=== PATIENT | male | born 1975 | race Hispanic/Latino ===

== ENCOUNTER 2019-05-13 00:40 | Inpatient (IN) | payer OTHER ==
[2019-05-13] VITALS (36 sets, daily range): BP systolic 115–163; BP diastolic 72–109
[~2019-05-13] VITALS: Ht 157.5 cm; Wt 89.8 kg
[2019-05-13] MEDS ORDERED: NITROGLYCERIN 5 MG/ML 10 ML VIAL IV ONE (01:06)
[2019-05-13] MEDS ORDERED: BIVALIRUDIN 250 MG/VIAL IV ONE (01:06)
[2019-05-13] MEDS ORDERED: LIDOCAINE HCL 2% 20ML ONE (01:07)
[2019-05-13] MEDS ORDERED: IOHEXOL-350 50ML VIAL IV ONE (01:07)
[2019-05-13] MEDS ORDERED: IOHEXOL 350 MG/ML 100ML INFUS..BTL IV ONE (01:07)
[2019-05-13] MEDS ORDERED: HEPARIN SODIUM 1000UNIT/ML 10ML VIAL ONE (01:15)
[2019-05-13] MEDS ORDERED: CLOPIDOGREL BISULFATE 300 MG TAB ONE (01:16)
[2019-05-13] MEDS ORDERED: ONDANSETRON HCL 4 MG/2 ML VIAL ONE (01:39)
[2019-05-13] MEDS ORDERED: DOPAMINE HCL 400 MG/D5%-WATER 250 ML IV ONE (01:47)
[2019-05-13] MEDS ORDERED: SODIUM CHLORIDE 0.9% 1000ML 1,000 ML IV SCH (02:48)
--- NOTE | 2019-05-13 02:49 | NUR ---
REPORT REPORT RECEIVED FROM ROSA MARIA BYNUM
[2019-05-13] MEDS ORDERED: ONDANSETRON HCL 4 MG/2 ML VIAL IVP PRN (03:00)
[2019-05-13] MEDS ORDERED: ACETAMINOPHEN 325 MG TAB PO PRN (03:00)
[2019-05-13] MEDS ORDERED: METOPROLOL TARTRATE 25 MG TAB PO SCH ×4 (03:00→09:00)
[2019-05-13] MEDS ORDERED: METOPROLOL TARTRATE 25 MG TAB ONE (03:28)
--- NOTE | 2019-05-13 04:15 | NUR ---
ADMISSION [id number] PATIENT ARRIVED TO ROOM 218 VIA BED. RIGHT GROIN SOFT, NO HEMATOMA NOTED. REINFORCED ACTIVITY RESTRICTIONS FOR 8 HOURS. PATIENT HYPERTENSIVE. INITIAL LOPRESSOR DOSE GIVEN
[2019-05-13 06:21] LABS: HEMATOCRIT 45.9 % (42-54); MEAN CORPUSCULAR HGB CONC 33.8 g/dL (32.0-36.0); MEAN CORPUSCULAR VOLUME 91.7 fL (79-99); PLATELET COUNT (AUTO) 294 K/uL (130-400); RED BLOOD CELL COUNT(AUTO) 5.01 MIL/uL (4.50-6.20); RED CELL DISTRIBUTION WIDTH 13.7 % (11.0-15.5); WHITE BLOOD COUNT (AUTO) 17.6 K/uL (4.8-10.8)
[2019-05-13 06:30] LABS: HEMOGLOBIN A1C 5.6 % (4.0-6.0)
[2019-05-13 06:54] LABS: ALBUMIN 3.2 g/dL (3.5-5.0); BILIRUBIN,TOTAL 0.9 mg/dL (0.2-1.0); CREATININE 1.4 mg/dL (0.5-1.5); POTASSIUM 4.3 mmol/L (3.5-5.1); TOTAL PROTEIN, SERUM 6.8 g/dL (6.0-8.3)
[2019-05-13] MEDS: CLOPIDOGREL BISULFATE 75 MG TAB PO SCH (07:25)
[2019-05-13] MEDS ORDERED: LISINOPRIL 10 MG TABLET ONE (07:27)
[2019-05-13] MEDS ORDERED: PANTOPRAZOLE SODIUM 40 MG TABLET.DR PO ONE (07:28)
[2019-05-13 07:37] LABS: TROPONIN I 143.28 ng/mL (0.00-0.06)
[2019-05-13] MEDS ORDERED: MAG HYDROX/AL HYDROX/SIMETH ES 30 ML SUSP UDCUP PO PRN (08:00)
[2019-05-13] MEDS: PANTOPRAZOLE SODIUM 40 MG TABLET.DR PO SCH (08:06)
[2019-05-13] MEDS: LISINOPRIL 10 MG TABLET PO SCH ×2 (08:06→21:37)
--- NOTE | 2019-05-13 08:08 | NUR ---
DR. Rafal LLOYD IN ROOM ASSESSING PT. AND SPEAKING WITH PT. RE:DRUG USE; PT. VERBALIZED UNDERSTANDING. Addendum: 05/14/19 at 1245 by JASPER WINTERS RN RN ADDENDUM:DR. Rafal LLOYD MADE AWARE, BY THIS NURSE, PT. WITH EPISODES OF ASYMPTOMATIC VENTRICULAR TACHYCARDIA; VERBALIZED UNDERSTANDING AND ORDERS RECEIVED.
[2019-05-13] MEDS ORDERED: LISINOPRIL 5 MG TABLET PO SCH (09:00)
[2019-05-13] MEDS: METOPROLOL TARTRATE 25 MG TAB PO SCH ×2 (09:22→21:37)
[2019-05-13] MEDS: ASPIRIN 325 MG TABLET PO SCH (09:22)
[2019-05-13] MEDS ORDERED: CHLORDIAZEPOXIDE HCL 25 MG CAP PO PRN ×2 (09:30)
[2019-05-13] MEDS ORDERED: POTASSIUM CHLORIDE 20MEQ/100ML 100 ML IV PRN ×2 (09:30)
[2019-05-13] MEDS ORDERED: POTASSIUM CHLORIDE 10% ELIXIR 20 MEQ/15 ML UDCUP PO PRN (09:30)
[2019-05-13] MEDS ORDERED: PHARMACY COMMUNICATION MISC PRN (09:30)
[2019-05-13] MEDS ORDERED: LIDOCAINE HCL-MPF 1% 2ML VIAL IVP PRN ×2 (09:30)
[2019-05-13] MEDS ORDERED: LORAZEPAM 2 MG/ML 1 ML VIAL IVP PRN ×2 (09:30)
[2019-05-13] MEDS ORDERED: POTASSIUM CHLORIDE 20 MEQ ERTAB PO PRN (09:30)
--- NOTE | 2019-05-13 09:35 | NUR ---
DR. Vicky BLACKMON IN ROOM ASSESSING/SPEAKING WITH PT.
--- NOTE | 2019-05-13 10:27 | NUR ---
[facility] Sw met with pt who states he is on SSD for bipolar disorder, lives with his parents Gregg Koch. Sister is ER contact Leah Pisano [phone]. Pt has no PCP, no rx coverage, takes no daily meds, under no psych care. Pt has no DME or in home care services. [facility] to [facility] Addendum: 05/13/19 at 1032 by MATTHEW MUNGUIA Amended: Links added.
--- NOTE | 2019-05-13 11:52 | NUR ---
PAGED CARDIOLOGY TO INFORM OF PT. WITH EXTENDED EPISODE OF ASYMPTOMATIC VENTRICULAR TACHYCARDIA. AWAITING RESPONSE.
--- NOTE | 2019-05-13 11:58 | NUR ---
RECEIVED CALL FROM Kalee DICKERSON PA-C, INFORMED OF EVENTS. ORDERS RECEIVED.
[2019-05-13] MEDS ORDERED: AMIODARONE HCL 900 MG in DEXTROSE 5%-WATER 500 ML IV PRN (12:00)
[2019-05-13] MEDS ORDERED: AMIODARONE HCL 150 MG in DEXTROSE 5%-WATER 100 ML IV PRN (12:00)
[2019-05-13 12:59] LABS: MAGNESIUM 1.8 mg/dL (1.80-2.40)
[2019-05-13 13:31] LABS: TROPONIN I 161.93 ng/mL (0.00-0.06)
[2019-05-13] MEDS ORDERED: MAGNESIUM 2GM PREMIX 50ML 50 ML IV PRN (14:00)
--- NOTE | 2019-05-13 14:37 | NUR ---
REQUESTED TO AMBULATE IN HALLWAY. APPLIED TELEMETRY PACK FOR MONITORING. THIS NURSE ACCOMPANIED PT. TO AMBULATE. ABLE TO AMBULATE APPROXIMATELY NINETY EIGHT FEET AND HAD TO STOP AND REST DUE TO FEELING "TIRED" AND EXERTIONAL SOB NOTE. PT. ABLE TO AMBULATE ADDITIONAL ONE HUNDRED AND SIXTEEN FEET WITH ADDITIONAL REST STOP. AMBULATED BACK TO ROOM LAST NINETY EIGHT FEET. PT. REQUESTED TO REMAIN SITTING UP ON SIDE OF BED; FAMILY MEMBERS AT BEDSIDE. CALL LIGHT WITHIN REACH. NO ARRHYTHMIAS NOTED DURING AMBULATION.
--- NOTE | 2019-05-13 20:00 | NUR ---
ASSESSMENT DENIES PAIN. REMAINS ON CORDARONE DRIP FOR V TACH ON DAY SHIFT. ASSESSMENT COMPLETED SEE FLOW SHEET. Addendum: 05/13/19 at 2115 by VILLA FALCON RN RN Amended: Links added.
[2019-05-13] MEDS: ATORVASTATIN CALCIUM 40 MG TABLET PO SCH (21:36)
[2019-05-14] VITALS (22 sets, daily range): BP systolic 122–174; BP diastolic 62–114
[2019-05-14 03:50] LABS: HEMATOCRIT 44.9 % (42-54); MEAN CORPUSCULAR HGB CONC 34.1 g/dL (32.0-36.0); MEAN CORPUSCULAR VOLUME 90.8 fL (79-99); NUCLEATED RED BLOOD CELLS 0.1 % (0.0-0.19); PLATELET COUNT (AUTO) 262 K/uL (130-400); RED BLOOD CELL COUNT(AUTO) 4.95 MIL/uL (4.50-6.20); RED CELL DISTRIBUTION WIDTH 13.9 % (11.0-15.5); WHITE BLOOD COUNT (AUTO) 19.1 K/uL (4.8-10.8)
[2019-05-14 04:07] LABS: B-TYPE NATRIURETIC PEPTIDE 195 pg/mL (0-100)
[2019-05-14 04:22] LABS: CREATININE 1.2 mg/dL (0.5-1.5); MAGNESIUM 2.4 mg/dL (1.80-2.40); POTASSIUM 4.3 mmol/L (3.5-5.1); THYROID STIMULATING HORMONE 0.87 uIU/mL (0.36-3.74)
[2019-05-14 04:25] LABS: TROPONIN I 136.43 ng/mL (0.00-0.06)
[2019-05-14 08:11] LABS: HEPATITIS A ANTIBODY IGM Negative (Negative); HEPATITIS B CORE IGM Negative (Negative); HEPATITIS Bs ANTIGEN SCREEN P Negative (Negative)
[2019-05-14] MEDS: CLOPIDOGREL BISULFATE 75 MG TAB PO SCH (08:15)
[2019-05-14] MEDS: ASPIRIN 325 MG TABLET PO SCH (08:15)
[2019-05-14] MEDS: METOPROLOL TARTRATE 25 MG TAB PO SCH ×3 (08:16→20:05)
[2019-05-14] MEDS: FOLIC ACID 1 MG TABLET PO SCH (08:16)
[2019-05-14] MEDS: PANTOPRAZOLE SODIUM 40 MG TABLET.DR PO SCH (08:16)
[2019-05-14] MEDS: MULTIVITAMIN TABLET PO SCH (08:16)
[2019-05-14] MEDS: THIAMINE HCL 100 MG/ML 2ML VIAL IV SCH (08:18)
[2019-05-14] MEDS ORDERED: THIAMINE HCL 100 MG/ML 2ML VIAL IM SCH (09:00)
[2019-05-14] MEDS ORDERED: LISINOPRIL 20 MG TABLET PO SCH ×2 (09:00→10:30)
--- NOTE | 2019-05-14 10:06 | NUR ---
DR. DR. Sandra MARINA, CLERK GUIDE, TO NOTIFY RE:LATEST BP AND MEDICATIONS ADMINISTERED ORDERED. AWAITING RESPONSE.
[2019-05-14] MEDS ORDERED: LISINOPRIL 40 MG TABLET PO SCH (17:30)
[2019-05-14] MEDS: LISINOPRIL 40 MG TABLET PO SCH (19:18)
[2019-05-14] MEDS ORDERED: HYDRALAZINE HCL 20 MG/ML VIAL ONE (19:20)
[2019-05-14] MEDS ORDERED: METOPROLOL TARTRATE 25 MG TAB ONE (19:21)
--- NOTE | 2019-05-14 20:00 | NUR ---
ASSESSMENT AWAKE. RESTING IN BED. DENIES PAIN. ASSESSMENT COMPLETED SEE FLOW SHEET. ENCOURAGED TO CALL FOR WANTS OR NEEDS. AMBULATED IN UNIT ON TELE IVÁN WITHOUT CP OR SOB. Addendum: 05/14/19 at 2112 by VILLA FALCON RN RN Amended: Links added.
[2019-05-14] MEDS ORDERED: HYDRALAZINE HCL 20 MG/ML VIAL IV SCH (20:30)
[2019-05-14] MEDS: ATORVASTATIN CALCIUM 40 MG TABLET PO SCH (20:45)
[2019-05-15] VITALS (14 sets, daily range): BP systolic 125–158; BP diastolic 54–99
[2019-05-15 03:55] LABS: BASOPHILS % (AUTO) 0.5 % (0.0-5.0); EOSINOPHILS % (AUTO) 0.4 % (0.0-8.0); HEMATOCRIT 43.8 % (42-54); LYMPHOCYTES % (AUTO) 16.2 % (21.0-51.0); MEAN CORPUSCULAR HEMOGLOBIN 30.6 pg (27.0-33.0); MEAN CORPUSCULAR HGB CONC 33.2 g/dL (32.0-36.0); MEAN CORPUSCULAR VOLUME 92.3 fL (79-99); MONOCYTES % (AUTO) 8.2 % (3.0-13.0); NEUTROPHILS % (AUTO) 74.7 % (40.0-77.0); NUCLEATED RED BLOOD CELLS 0.1 % (0.0-0.19); PLATELET COUNT (AUTO) 202 K/uL (130-400); RED BLOOD CELL COUNT(AUTO) 4.74 MIL/uL (4.50-6.20); RED CELL DISTRIBUTION WIDTH 13.7 % (11.0-15.5); WHITE BLOOD COUNT (AUTO) 18.9 K/uL (4.8-10.8)
[2019-05-15 04:09] LABS: ALBUMIN 2.9 g/dL (3.5-5.0); BILIRUBIN,TOTAL 0.7 mg/dL (0.2-1.0); CREATININE 1.1 mg/dL (0.5-1.5); POTASSIUM 3.8 mmol/L (3.5-5.1); TOTAL PROTEIN, SERUM 6.3 g/dL (6.0-8.3)
[2019-05-15 04:31] LABS: HEMOGLOBIN A1C 5.7 % (4.0-6.0)
[2019-05-15] MEDS: CLOPIDOGREL BISULFATE 75 MG TAB PO SCH (07:49)
[2019-05-15] MEDS: LISINOPRIL 40 MG TABLET PO SCH ×2 (07:49→20:45)
[2019-05-15] MEDS: ASPIRIN 325 MG TABLET PO SCH (07:49)
[2019-05-15] MEDS: FOLIC ACID 1 MG TABLET PO SCH (07:50)
[2019-05-15] MEDS: METOPROLOL TARTRATE 25 MG TAB PO SCH ×2 (07:50→20:44)
[2019-05-15] MEDS: PANTOPRAZOLE SODIUM 40 MG TABLET.DR PO SCH (07:50)
[2019-05-15] MEDS: MULTIVITAMIN TABLET PO SCH (07:50)
[2019-05-15] MEDS: FUROSEMIDE 40 MG TABLET PO SCH (07:50)
[2019-05-15] MEDS: THIAMINE HCL 100 MG/ML 2ML VIAL IV SCH (07:51)
[2019-05-15] MEDS ORDERED: LISINOPRIL 40 MG TABLET PO SCH (09:00)
--- NOTE | 2019-05-15 10:30 | NUR ---
AMBULATING IN HALLWAY WITH STEADY GAIT. DENIES ANY C/O SOB, DENIES ANY WEAKNESS, DENIES ANY PAIN.
--- NOTE | 2019-05-15 12:10 | NUR ---
SITTING UP ON SIDE OF BED EATING LUNCH W/O C/O. CALL LIGHT WITHIN REACH. ROOM DOOR OPEN, VISIBLE FROM NURSE'S STATION.
--- NOTE | 2019-05-15 13:00 | NUR ---
TRANSFER FROM ICU RECEIVED PT FROM Vicky WINTERS RN, A&OX3, CALM COOPERATIVE AND DOES NOT APPEAR TO BE IN ANY DISTRESS NOR ANY NEURO DEFICITS PRESENT. RT GROIN SOFT NONTENDER WITH NO OOZING OR HEMATOMA PRESENT. DP/PT PULSES PALPABLE. PT IS AMBULATORY, GAIT STEADY AND STRONG WITH STAND BY ASSIST. CALL LIGHT WITHIN REACH.
[2019-05-15] MEDS ORDERED: POTASSIUM CHLORIDE 20MEQ/100ML 100 ML IV PRN (14:54)
[2019-05-15] MEDS: ATORVASTATIN CALCIUM 40 MG TABLET PO SCH (20:44)
[2019-05-16 04:05] VITALS: BP 137/73
[2019-05-16 04:30] LABS: CREATININE 1.1 mg/dL (0.5-1.5); POTASSIUM 3.6 mmol/L (3.5-5.1)
[2019-05-16] MEDS: THIAMINE HCL 100 MG/ML 2ML VIAL IV SCH (07:13)
[2019-05-16 07:19] VITALS: BP 138/94
[2019-05-16] MEDS: FUROSEMIDE 40 MG TABLET PO SCH (07:32)
[2019-05-16] MEDS: FOLIC ACID 1 MG TABLET PO SCH (07:32)
[2019-05-16] MEDS: PANTOPRAZOLE SODIUM 40 MG TABLET.DR PO SCH (07:32)
[2019-05-16] MEDS: ASPIRIN 325 MG TABLET PO SCH (07:32)
[2019-05-16] MEDS: METOPROLOL TARTRATE 25 MG TAB PO SCH (07:32)
[2019-05-16] MEDS: CLOPIDOGREL BISULFATE 75 MG TAB PO SCH (07:32)
[2019-05-16] MEDS: LISINOPRIL 40 MG TABLET PO SCH (07:32)
[2019-05-16] MEDS: MULTIVITAMIN TABLET PO SCH (07:32)
--- NOTE | 2019-05-16 08:00 | NUR ---
ASSESSMENT PT IS AAOX4 DENIES CP DENIES SOB DENIES NV NO COMPLAINTS AMBULATING IN HALLS. CARDIOLOGY ROUNDED, PLAN FOR DC HOME WITH LIFEV[facility] TODAY.
[2019-05-16 11:14] VITALS: BP 133/84
--- NOTE | 2019-05-16 12:23 | NUR ---
[employer] NANDA SIGNED FOR [employer]. INFO SENT. MONEY ORDER SIGNED AND SENT. PENDING FINAL APPROVAL AND DELIVERY OF EQUIPMENT. MONEY ORDER ON DESK. Addendum: 05/16/19 at 1225 by PHILIP DANG RN Amended: Links added.
[2019-05-16] MEDS ORDERED: METO25 PO (15:39)
[2019-05-16] MEDS ORDERED: PANT40TA PO (15:39)
[2019-05-16] MEDS ORDERED: ATOR40TA69 PO (15:39)
[2019-05-16] MEDS ORDERED: FURO40TA7 PO (15:39)
[2019-05-16] MEDS ORDERED: CLOP75TA14 PO (15:39)
[2019-05-16] MEDS ORDERED: LISI40TA4 PO (15:39)
[2019-05-16] MEDS ORDERED: AEC81 PO (15:39)
[2019-05-16 15:50] VITALS: BP 142/88
--- NOTE | 2019-05-16 16:19 | NUR ---
DISCHARGE PATIENT AND FAMILY VERBALIZE DC INSTRUCTIONS UNDERSTANDING. AGREE TO TAKE ALL MEDS ORDERED, AGREE TO FOLLOW UP WITH [facility] ORDERED. ALL QUESTIONS ANSWERED. PIV REMOVED CATH TIP INTACT. AGREE TO HAVE LIFEVEST ON INSTRUCTED. ALL BELONGINGS TAKEN WITH PATIENT AND FAMILY. DOWN VIA WC TO VEHICLE.
[2019-05-17 04:08] LABS: HEPATITIS A ANTIBODY IGM Negative (Negative); HEPATITIS B CORE IGM Negative (Negative); HEPATITIS Bs ANTIGEN SCREEN P Negative (Negative)
== END 2019-05-16 16:15 | disposition home or self-care (01) | DRG 246 ==
LOC: EDHIP 01:05 → 2CH 02:54 → 2DH 05-15 12:34
PROVIDERS: ADMIT Internal Medicine; ATTEND Internal Medicine
PROC: 4A023N7 Measurement of Cardiac Sampling and Pressure, Left Heart, Percutaneous Approach (ICD-10-PCS; principal; 2019-05-13)
PROC: 027034Z Dilation of Coronary Artery, One Artery with Drug-eluting Intraluminal Device, Percutaneous Approach (ICD-10-PCS; 2019-05-13)
PROC: B2111ZZ Fluoroscopy of Multiple Coronary Arteries using Low Osmolar Contrast (ICD-10-PCS; 2019-05-13)
PROC: B2151ZZ Fluoroscopy of Left Heart using Low Osmolar Contrast (ICD-10-PCS; 2019-05-13)
DX: I21.19 ST elevation (STEMI) myocardial infarction involving other coronary artery of inferior wall (principal); I50.21 Acute systolic (congestive) heart failure; I47.2 Ventricular tachycardia; I11.0 Hypertensive heart disease with heart failure; F32.9 Major depressive disorder, single episode, unspecified; E11.9 Type 2 diabetes mellitus without complications; E66.9 Obesity, unspecified; E78.5 Hyperlipidemia, unspecified; F14.129 Cocaine abuse with intoxication, unspecified; F15.90 Other stimulant use, unspecified, uncomplicated; F20.9 Schizophrenia, unspecified; F43.10 Post-traumatic stress disorder, unspecified; I25.10 Atherosclerotic heart disease of native coronary artery without angina pectoris; I25.5 Ischemic cardiomyopathy; N28.9 Disorder of kidney and ureter, unspecified; W18.30XA Fall on same level, unspecified, initial encounter; Y93.89 Activity, other specified; Y92.89 Other specified places as the place of occurrence of the external cause; Y99.8 Other external cause status; Z90.49 Acquired absence of other specified parts of digestive tract; Z91.19 Patient's noncompliance with other medical treatment and regimen
CPT/HCPCS: 36415; 76705; 80048; 80053; 80061; 80074; 82140; 82150; 82550; 82948; 82977; 83036; 83690; 83735; 83874; 83880; 83915; 84443; 84484; 85025; 85027; 86701; 87390; 93005; 93306; 93458; C1760; C1769; C1887; C1894; C9600; G0378; J0360; J0583; J1265; J1644; J2405; J3411; J3475; J3490; J7030; Q9967